=== PATIENT | female | born 1965 | race Caucasian/White ===

== ENCOUNTER 2024-08-13 16:08 | Outpatient (REF) | payer BC, SELFPAY ==
[2024-08-13 15:26] LABS: HCT 37.5 % (36.0-46.0); HGB 12.2 g/dL (11.2-15.7); MCH 30.6 pg (27.0-33.0); MCHC 32.5 % (32.0-36.0); MCV 94 fL (80-95); MPV 9.4 fL (8.0-11.0); Platelet Count 247 10^3/uL (130-400); RBC 3.99 10^6/uL (3.93-5.22); RDW-SD 42.3 fL; WBC 4.45 10^3/uL (4.4-10.8)
[2024-08-13 15:59] LABS: ALT 29 U/L (14-59); AST 19 U/L (15-37); Alkaline Phosphatase 93 U/L (46-116); Anion Gap 10.9 mmol/L (3-11); BUN 14 mg/dL (7-18); Bilirubin, Total 0.33 mg/dL (0.2-1.0); CO2 27.1 mmol/L (21.0-32.0); CREATININE 0.8 mg/dL (0.55-1.02); Calcium 9.5 mg/dL (8.5-10.1); Calculated LDL 123 mg/dL (<100); Chloride 103 mmol/L (98-107); Cholesterol 226 mg/dL (<200); Estimated GFR 85.35 (mL/min/1.73m2); Glucose 100 mg/dL (74-106); HDL Cholesterol 78 mg/dL (40-60); Potassium 4.1 mmol/L (3.5-5.1); Sodium 141 mmol/L (136-145); TSH (W/Ref FT4) 1.42 uIU/mL (0.36-3.74); Total Protein 7.1 g/dL (6.4-8.2); Triglyceride 125 mg/dL (<150)
== END 2024-08-13 16:09 | disposition home or self-care (01) ==
LOC: NCHCN 16:08
PROVIDERS: Visit Provider Family Medicine
DX: E78.00 Pure hypercholesterolemia, unspecified (principal); D64.9 Anemia, unspecified; E66.9 Obesity, unspecified
CPT/HCPCS: 80053; 80061; 85027; 84443

== ENCOUNTER 2025-02-28 18:20 | Outpatient (REF) | payer BC, SELFPAY ==
[2025-02-28 21:58] LABS: ALT 70 U/L (14-59); AST 19 U/L (15-37); Albumin 3.9 g/dL (3.4-5.0); Alkaline Phosphatase 115 U/L (46-116); Anion Gap 8.4 mmol/L (3-11); BUN 12 mg/dL (7-18); Bilirubin, Total 0.3 mg/dL (0.2-1.0); CO2 29.6 mmol/L (21.0-32.0); CREATININE 0.6 mg/dL (0.55-1.02); Calcium 9.6 mg/dL (8.5-10.1); Chloride 104 mmol/L (98-107); Estimated GFR 103.33 (mL/min/1.73m2); Glucose 105 mg/dL (74-106); Potassium 4.3 mmol/L (3.5-5.1); Sodium 142 mmol/L (136-145); Total Protein 7.3 g/dL (6.4-8.2)
== END 2025-02-28 18:21 | disposition home or self-care (01) ==
LOC: NCHCN 18:20
PROVIDERS: PCP Family Medicine; Visit Provider Family Medicine
DX: Z51.81 Encounter for therapeutic drug level monitoring (principal)
CPT/HCPCS: 80053

== ENCOUNTER 2025-03-28 19:01 | Outpatient (REF) | payer BC, SELFPAY ==
[2025-03-28 15:32] LABS: ALT 27 U/L (14-59); AST 22 U/L (15-37); Albumin 4.1 g/dL (3.4-5.0); Alkaline Phosphatase 95 U/L (46-116); Anion Gap 9.0 mmol/L (3-11); BUN 16 mg/dL (7-18); Bilirubin, Total 0.3 mg/dL (0.2-1.0); CO2 27.0 mmol/L (21.0-32.0); Calcium 9.5 mg/dL (8.5-10.1); Chloride 104 mmol/L (98-107); Estimated GFR 103.33 (mL/min/1.73m2); Glucose 101 mg/dL (74-106); Potassium 4.2 mmol/L (3.5-5.1); Sodium 140 mmol/L (136-145); Total Protein 7.2 g/dL (6.4-8.2)
== END 2025-03-28 19:02 | disposition home or self-care (01) ==
LOC: NCHCN 19:01
PROVIDERS: PCP Family Medicine; Visit Provider Family Medicine
DX: N95.1 Menopausal and female climacteric states (principal)
CPT/HCPCS: 80053

== ENCOUNTER 2025-07-28 10:19 | Outpatient (REF) | payer BC, SELFPAY ==
--- NOTE | 2025-07-28 07:45 | PAPFT_PTH ---
PATIENT: Glo Jhaveri LOC: [facility]#:[id number] AGE/SX: 59/F ROOM: RE07/28/[address]: Cindy Joy : 1965 BED: DIS: 07/28/2025 SPEC #: [id number] RECD: 07/28/25 17:55 STATUS: SIVAKUMAR RESanjana #: [id number] PANKAJ: 07/28/25 07:[address]: Cindy Joy DEPT: [facility] Cytology RECD BY: Vania Luna Tissues: 1 - CX/ENDOCX FOR PAP SMEARS Procedures: PAP THIN PREP/[facility] Screening HPV DNA PROBE Comments: [id number] (HPV 16 & 18/45)
[2025-07-28 15:28] LABS: ALT 24 U/L (14-59); AST 21 U/L (15-37); Albumin 4.1 g/dL (3.4-5.0); Alkaline Phosphatase 110 U/L (46-116); Anion Gap 7.4 mmol/L (3-11); BUN 19 mg/dL (7-18); Bilirubin, Total 0.3 mg/dL (0.2-1.0); CO2 29.6 mmol/L (21.0-32.0); Calcium 9.6 mg/dL (8.5-10.1); Chloride 102 mmol/L (98-107); Cholesterol 200 mg/dL (<200); Glucose 99 mg/dL (74-106); HDL Cholesterol 60 mg/dL (>or=50); Potassium 4.3 mmol/L (3.5-5.1); Sodium 139 mmol/L (136-145); TSH (W/Ref FT4) 0.11 uIU/mL (0.36-3.74); Total Protein 7.5 g/dL (6.4-8.2)
[2025-07-28 23:30] LABS: Hepatitis C Ab w Rflx HCV PCR Negative (Negative)
[2025-07-28 23:33] LABS: HIV-1/2 Ag & Ab Screen Negative (Negative)
== END 2025-07-28 10:20 | disposition home or self-care (01) ==
LOC: NCHCN 10:19
PROVIDERS: PCP Family Medicine; Visit Provider Family Medicine
DX: Z12.4 Encounter for screening for malignant neoplasm of cervix (principal)
CPT/HCPCS: 80053; 80061; 86803; 87389; 88142; 84439; 84443; 87624